=== PATIENT | female | born 1965 | race African-American/Black ===

== ENCOUNTER 2020-12-24 19:19 | Emergency (ER) | payer OTHER ==
[2020-12-24 19:32] VITALS: BMI 26.4
[2020-12-24 19:44] VITALS: BP 144/100; PULSE 58; TEMP 98.2
[2020-12-24] MEDS ORDERED: KETOROLAC TROMETHAMINE 15 MG/ML VIAL IM ONE (20:03)
[2020-12-24] MEDS ORDERED: KETOROLAC TROMETHAMINE 30 MG/1 ML VIAL ONE (20:12)
== END 2020-12-24 22:16 | disposition home or self-care (01) ==
LOC: FER 19:19
PROC: 3E0233Z Introduction of Anti-inflammatory into Muscle, Percutaneous Approach (ICD-10-PCS; principal; 2020-12-24)
DX: M71.22 Synovial cyst of popliteal space [Baker], left knee (principal); M25.562 Pain in left knee; M25.561 Pain in right knee
CPT/HCPCS: 93970-TC; 99284-25

== ENCOUNTER 2022-05-20 20:55 | Emergency (ER) | payer OTHER ==
[2022-05-20 21:03] VITALS: BP 160/100; PULSE 72; RESP 16; TEMP 98.1; BMI 25.1
[2022-05-20] MEDS ORDERED: ACETAMINOPHEN 500 MG TABLET (FP) PO ONE (21:27)
[2022-05-20] MEDS ORDERED: ACETAMINOPHEN 500 MG TABLET (FP) ONE (21:28)
== END 2022-05-20 21:43 | disposition home or self-care (01) ==
LOC: FER 20:55
DX: J02.9 Acute pharyngitis, unspecified (principal)
CPT/HCPCS: 87651; 99283-25